=== PATIENT | female | born 1945 | race Caucasian/White ===

== ENCOUNTER 2017-12-14 17:26 | Inpatient (IN) | payer OTHER ==
[~2017-12-14] VITALS: Ht 152.4 cm; Wt 86.2 kg
--- NOTE | 2017-12-14 17:29 | NUR ---
PT [facility] ALS TO BED 1
--- NOTE | 2017-12-14 17:34 | NUR ---
PATIENT PRESENTS TO ED WITH C/O GENERALIZE WEAKNESS X YESTERDAY;NO FACIAL DROOP;NO BUE AND BLE DRIFT;NO SENSORY LOSS;PERRL;CLEAR SPEECH;PT HAS HX OF CVA W/ LT SIDED DEFICIT HX OF RADICAL MASTECTOMY ON BOTH BREAST;AAO X 2.PDENIES N/V/D; SKIN IS PINK/WARM/DRY;PATIENT POSITIONED FOR COMFORT; HOB ELEVATED; BEDRAILS UP X2; BED DOWN. ER MD MADE AWARE OF PT STATUS.
[2017-12-14 17:43] VITALS: BP 95/54
--- NOTE | 2017-12-14 19:21 | NUR ---
CHARLOTTE GAVE REPORT TO RN JUDITH PULL WORKER. PT VITALS STABLE
[2017-12-14 19:29] LABS: BASOPHILS % (AUTO) 0.1 % (0.0-2.0); EOSINOPHILS % (AUTO) 0.1 % (0.0-4.0); HEMOGLOBIN 11.6 g/dL (12.0-16.0); LYMPHOCYTES # (AUTO) 1.3 K/uL (2.5-16.5); LYMPHOCYTES % (AUTO) 17.1 % (20.5-51.1); MEAN CORPUSCULAR HEMOGLOBIN 22 pg (27-31); MEAN CORPUSCULAR HGB CONC 30 g/dL (33-37); MEAN CORPUSCULAR VOLUME 72.5 fL (80-94); MONOCYTES # (AUTO) 0.6 K/uL (0.8-1.0); MONOCYTES % (AUTO) 8.2 % (1.7-9.3); NEUTROPHILS # (AUTO) 5.8 K/uL (1.8-7.7); NEUTROPHILS % (AUTO) 74.5 % (42.2-75.2); PLATELET COUNT (AUTO) 142 K/uL (140-450); RED BLOOD CELL COUNT(AUTO) 5.35 MIL/uL (4.20-5.40); RED CELL DISTRIBUTION WIDTH 21.9 % (11.6-13.7); WHITE BLOOD COUNT (AUTO) 7.8 K/uL (4.8-10.8)
[2017-12-14 19:33] LABS: HEMATOCRIT 34.8 % (36-48)
--- NOTE | 2017-12-14 19:38 | NUR ---
PT RESTING IN BED. PT HAD A BM. PT WAS CLEANED UP AND TURNED TO THE SIDE. U/A WAS COLLECTED. COMFEORT MEASURES OFFERED PT TOLERATED WELL.
[2017-12-14 19:42] LABS: PROTHROMBIN TIME 18.8 secs (10.8-13.4)
[2017-12-14 19:57] LABS: ASPARTATE AMINOTRANSFERASE 58 U/L (15-37); CARBON DIOXIDE 22.3 mmol/L (21-32); CHLORIDE 104 mmol/L (98-107); CREATININE 2.9 mg/dL (0.6-1.3); GLUCOSE 124 mg/dL (74-106); SODIUM SERUM 136 mmol/L (136-145); TOTAL BILIRUBIN 1.5 mg/dL (0.0-1.0)
[2017-12-14 20:07] LABS: POTASSIUM 6.3 mmol/L (3.5-5.1); UREA NITROGEN, BLOOD 87 mg/dL (7-18)
--- NOTE | 2017-12-14 20:09 | NUR ---
RECIEVED CALL FROM LAB CRITICAL LAB VALUES LACTIC ACID-5.6, K-6.3, BUN-8.7. NOTIFIED.
[2017-12-14 20:15] LABS: APPEARANCE,URINE SL CLOUDY (CLEAR); BILIRUBIN,URINE NEGATIVE (NEGATIVE); BLOOD, URINE 2+ (NEGATIVE); COLOR,URINE YELLOW (YELLOW); LEUKOCYTE ESTERASE ,URINE 1+ (NEGATIVE); NITRITE, URINE NEGATIVE (NEGATIVE); PH,URINE 5.5 (5.0-9.0); UGLUCOSE NEGATIVE (NEGATIVE)
[2017-12-14] MEDS ORDERED: DEXTROSE 50% 50 ML SYR IVP ONE (20:15)
[2017-12-14] MEDS ORDERED: INSULIN REGULAR, HUMAN 100 UNIT/ML VIAL SUBQ ONE (20:15)
[2017-12-14] MEDS ORDERED: NACL 0.9% 2,500 ML IV ONE (20:25)
[2017-12-14 21:01] LABS: RBC,URINE 11-20 (MOD) /HPF (0-5); WBC,URINE TOO MANY TO COUNT /HPF (0-5)
[2017-12-14] MEDS ORDERED: LEVOFLOXACIN 500 MG/D5W PREMIX 100 ML IV ONE (21:20)
[2017-12-14] MEDS: NACL 0.9% 1,000 ML IV SCH (21:59)
[2017-12-14] MEDS ORDERED: ONDANSETRON 4 MG/2 ML VIAL IVP PRN (22:00)
[2017-12-14] MEDS ORDERED: HYDROcodone/APAP 5/325 MG 1 TAB TAB PO PRN (22:00)
[2017-12-14] MEDS ORDERED: ACETAMINOPHEN 325 MG TAB PO PRN (22:00)
--- NOTE | 2017-12-14 22:05 | NUR ---
PT RESTING IN BED, VITALS STABLE. FAMILY AT BEDSIDE
[2017-12-14] MEDS ORDERED: SODIUM POLYSTYRENE 15 GM/60 ML UDBTL PO ONE (22:10)
[2017-12-14 22:52] LABS: ANION GAP 17.3 (8-16); CARBON DIOXIDE 22.1 mmol/L (21-32); CHLORIDE 104 mmol/L (98-107); GLUCOSE 227 mg/dL (74-106); SODIUM SERUM 137 mmol/L (136-145)
[2017-12-14 22:56] LABS: POTASSIUM 6.4 mmol/L (3.5-5.1); UREA NITROGEN, BLOOD 85 mg/dL (7-18)
--- NOTE | 2017-12-14 23:10 | NUR ---
Patient will be admitted to care of DR. DUNHAM . Admited to TELEMETRY . Will go to room 121A . Belongings list completed. Report to FUENTES RASMUSSEN. VITALS STABLE UPON TRANSFER TO FLOOR. PT TOLERATED WELL.
--- NOTE | 2017-12-14 23:10 | NUR ---
Pt report given to FUENTES RASMUSSEN. Transfer of care at this time. VITALS STABLE
--- NOTE | 2017-12-14 23:12 | NUR ---
Nataly cloud in ED - 12/15/17 at 0042 by [email or web address] Pt report given to MAXX RASMUSSEN. Transfer of care at this time. VITALS STABLE
--- NOTE | 2017-12-14 23:15 | NUR ---
RECEIVED FROM ER PER CHETNA AWAKE , ALERT AND ABLE TO VERBALIZE SIMPLE NEEDS. PT. ACCOMPANIED BY DAUGHTER WHO TAKES CARE OF HER AT HOME. PT. DX. OF LACTIC ACIDOSIS AND RENAL FAILURE. ON TELEMETRY MONITORING. CARE PLANS FOR THE NIGHT DISCUSSED WITH PT. AND DAUGHTER( ESTELA), CALL LIGHT WITH IN REACH AND HOW TO USE IT, RAPID RESPONSE EXPLAINED. NO EDEMA NOTED. PT. WITH SKIN INTACT BUT WITH BRUISING TO BACK AND SHOULDER RIGHT SIDE AND LEFT KNEE. PT. APPARENTLY TAKING PLAVIX P.O. 75 MG. AT HOME. AFEBRILE. ROOM AIR 02 SAT 100 %.
[2017-12-14] MEDS ORDERED: SODIUM POLYSTYRENE 15 GM/60 ML UDBTL PO SCH (23:30)
[2017-12-15 00:02] VITALS: BP 80/57
[2017-12-15] MEDS ORDERED: cefTRIAXone 1,000 MG VIAL ONE (00:26)
[2017-12-15] MEDS: NACL 0.9% 1,000 ML IV SCH ×2 (00:29→17:59)
--- NOTE | 2017-12-15 01:34 | NUR ---
PT. STILL AWAKE AT THIS TIME. DAUGHTER LEFT FOR HOME. PT. ABLE TO SWALLOW ALL KAYEXALATE ADMINISTERED. NO VOMITING. EXPLAINED WHY MD ORDERED IT. "OK" KEPT COMFORTABLE AND WARM. CALL LIGHT WITH IN REACH. IVF SITE INTACT AND NO INFILTRATION NOTED. WITH NS AT 100 ML/H AND WITH PIGGY BACK OF ROCEPHIN IVP 1 GM. ORDERED NOW.
--- NOTE | 2017-12-15 02:33 | NUR ---
PT. AT THIS TIME WITH BM. CLEANED BY CNAS. KEPT WARM, DRY AND CLEAN. ABLE TO USE CALL LIGHT FOR HELP. TELEMETRY MONITORING. NEEDS ANTICIPATED AND WILL BE MET. TURNED TO SIDES WITH PILLOW SUPPORT. ENCOURAGED TO STAY ON TURNED SIDE.
[2017-12-15 04:00] VITALS: BP 99/56
--- NOTE | 2017-12-15 04:00 | NUR ---
PT. HAD BM 3 X SINCE ADMINISTERING KAYEXALATE P.O. ABLE TO VERBALIZE NEEDS WELL. NO SOB. DENIES ANY PAIN. TURNED TO SIDES WITH PILLOW SUPPORT. PT. AT TIMES TURNS TO OTHER SIDE BY HERSELF. PILLOW SUPPORT TO PRESSURE AREAS.
[2017-12-15 06:22] LABS: BASOPHILS % (AUTO) 0.3 % (0.0-2.0); EOSINOPHILS % (AUTO) 0.3 % (0.0-4.0); HEMATOCRIT 37.2 % (36-48); LYMPHOCYTES # (AUTO) 0.9 K/uL (2.5-16.5); LYMPHOCYTES % (AUTO) 13.9 % (20.5-51.1); MEAN CORPUSCULAR HEMOGLOBIN 22 pg (27-31); MEAN CORPUSCULAR HGB CONC 30 g/dL (33-37); MEAN CORPUSCULAR VOLUME 72.8 fL (80-94); MONOCYTES # (AUTO) 0.5 K/uL (0.8-1.0); MONOCYTES % (AUTO) 8.4 % (1.7-9.3); NEUTROPHILS # (AUTO) 4.8 K/uL (1.8-7.7); NEUTROPHILS % (AUTO) 77.1 % (42.2-75.2); PLATELET COUNT (AUTO) 125 K/uL (140-450); RED BLOOD CELL COUNT(AUTO) 5.11 MIL/uL (4.20-5.40); RED CELL DISTRIBUTION WIDTH 21.6 % (11.6-13.7); WHITE BLOOD COUNT (AUTO) 6.2 K/uL (4.8-10.8)
--- NOTE | 2017-12-15 06:33 | NUR ---
PT. AWAKE AT THIS TIME . HEPARIN 5000 UNITS ADMINISTERED SQ TO ABDOMEN. NO COMPLAINTS DONE. STATED THAT SHE FEELS BETTER AFTER ALL THE BM SHE HAD FROM KAYEXALATE ADMINISTRATION. FOR NEPHROLOGY CONSULT RT HYPERKALEMIC. .
[2017-12-15 07:06] LABS: ALBUMIN 2.8 g/dL (3.4-5.0); ANION GAP 15.2 (8-16); ASPARTATE AMINOTRANSFERASE 65 U/L (15-37); CARBON DIOXIDE 23.1 mmol/L (21-32); CHLORIDE 108 mmol/L (98-107); GLUCOSE 78 mg/dL (74-106); POTASSIUM 5.3 mmol/L (3.5-5.1); SODIUM SERUM 141 mmol/L (136-145); TOTAL BILIRUBIN 1.1 mg/dL (0.0-1.0)
[2017-12-15 07:21] LABS: UREA NITROGEN, BLOOD 87 mg/dL (7-18)
--- NOTE | 2017-12-15 07:24 | NUR ---
RECEIVED REPORT FROM NIGHTSHIFT NURSE AT BEDSIDE. PATIENT IS ASLEEP AT THIS TIME BUT AROUSABLE TO NAME. NO DISTRESS NOTED. NO PAIN NOTED. PATIENT HAS AN IV NOTED ON HER LEFT AC 22 G RUNNING NS AT 100 ML/HR. BRUISES NOTED ON SHOULDER AND KNEE. CALL LIGHT WITHIN REACH OF PATIENT. PATIENT'S ROOM NEAR NURSING STATION. UPDATED BOARD IN PATIENT'S ROOM. BED ALARM ON. WILL CONTINUE TO MONITOR PATIENT.
--- NOTE | 2017-12-15 07:24 | NUR ---
PT. AWAKE AT T HIS TIME. ENDORSED TO THE NEXT RN FOR CONTINUITY OF CARE. ABLE TO VERBALIZE SIMPLE NEEDS WELL IN [place]. TELEMETRY MONITORING. LAC IVF SITE INTACT AND NO INFILTRATION.
--- NOTE | 2017-12-15 07:42 | NUR ---
PAGED DR. ELENA REGARDING CRITICAL LAB VALUES. AWAITING CALL BACK.
[2017-12-15 08:00] VITALS: BP 104/57
--- NOTE | 2017-12-15 08:15 | NUR ---
PAGED DR. ELENA REGARDING CRITICAL LAB VALUES. AWAITING CALL BACK
--- NOTE | 2017-12-15 08:25 | NUR ---
TRIED TO PAGE DR. ELENA REGARDING CRITICAL. NO ANSWER.
--- NOTE | 2017-12-15 08:38 | NUR ---
PATIENT HAS BEEN SCREENED AND CATEGORIZED HIGH NUTRITION RISK. PATIENT WILL BE SEEN WITHIN 1-2 DAYS OF ADMISSION. 12/15/17 12/16/[address]
--- NOTE | 2017-12-15 10:10 | NUR ---
SPOKE WITH YEELNA FROM [facility] FAXED INITIAL REVIEW TO [phone] PHONE [phone]
[2017-12-15] MEDS: ASPIRIN 81 MG TAB.CHEW PO SCH (10:24)
--- NOTE | 2017-12-15 11:13 | NUR ---
PATIENT RESTING AT THIS TIME. NO DISTRESS NOTED. WILL CONTINUE TO MONITOR PATIENT.
--- NOTE | 2017-12-15 11:30 | NUR ---
INSERTED JJ CATHETER INTO PATIENT USING STERILE TECHNIQUE. BACK FLOW OF URINE APPEARS OMERO YELLOW. PATIENT TOLERATED WELL. WILL CONTINUE TO MONITOR PATIENT.
[2017-12-15 12:00] VITALS: BP 91/60
--- NOTE | 2017-12-15 13:56 | NUR ---
PATIENT RESTING AT THIS TIME. NO DISTRESS NOTED. WILL CONTINUE TO MONITOR PATIENT.
[2017-12-15] MEDS ORDERED: CIPROFLOXACIN 250 MG TAB PO SCH ×2 (14:05→14:35)
[2017-12-15] MEDS ORDERED: DEXTROSE 50% 50 ML SYR IVP PRN (14:15)
[2017-12-15] MEDS ORDERED: INSULIN LISPRO SLIDING SCALE 100 UNITS/ML VIAL SUBQ PRN (14:15)
[2017-12-15] MEDS ORDERED: FLUCONAZOLE 100 MG TAB PO SCH (14:38)
[2017-12-15 16:00] VITALS: BP 104/64
--- NOTE | 2017-12-15 16:00 | NUR ---
FAMILY MEMBER AT BEDSIDE. NO DUSTRESS NOTED WILL CONTINUE TO MONITOR PATIENT.
[2017-12-15] MEDS: NYSTATIN 500 MU/5 ML UDC PO SCH ×2 (16:01→20:03)
--- NOTE | 2017-12-15 16:26 | NUR ---
12/15/17 RD INITIAL ASSESSMENT COMPLETED PLEASE REFER TO NUTRITION ASSESSMENT UNDER CARE ACTIVITY FOR ESTIMATED NUTRITIONAL NEEDS. 1. RECOMMEND CCHO 60 GM DIET TOLERATED 2. RECOMMEND NEPRO CARBSTEADY TID 3. RD TO FOLLOW-UP 2-3 DAYS, HIGH RISK MICHEAL MORRISSEY, RD
[2017-12-15] MEDS: BLOOD GLUCOSE MONITORING 1 DEV DEV FS SCH ×2 (16:48→19:57)
--- NOTE | 2017-12-15 17:25 | NUR ---
PATIENT IS ASLEEP AT THIS TIME. NO DISTRESS NOTED. WILL CONTINUE TO MONITOR PATIENT.
--- NOTE | 2017-12-15 19:25 | NUR ---
GAVE REPORT TO NIGHTSHIFT NURSE AT BEDSIDE. PATIENT IN STABLE CONDITION.
--- NOTE | 2017-12-15 19:26 | NUR ---
REPORT RECEIVED FROM AM NURSE AT BEDSIDE. PT IN STABLE CONDITION. AAOX4. INTRODUCED SELF AND BOARD UPDATED. PT HAS JJ IN PLACE DRAINING PROPERLY. IV SITE PATENT AND INTACT WITH NO OPEN WOUNDS. SKIN WARM, DRY, AND INTACT BUT HAS SOME BRUISING ON THE SHOULDER AND LOWER BACK. PICTURES IN THE CHART TAKEN BY CASA RASMUSSEN. BED LOCKED IN LOW POSITION. CALL CLARK WITHIN REACH.
--- NOTE | 2017-12-15 19:45 | NUR ---
TOOK PICTURES OF PATIENT'S BRUISES. FILED IT IN PATIENT'S CHART
[2017-12-15 20:00] VITALS: BP 92/51
--- NOTE | 2017-12-15 20:00 | NUR ---
CIPRO AND NYSTATIN SWISH AND SWALLOW GIVEN. PT TOLERATED WELL. BS 127. NO INSULIN COVERAGE NEEDED.
[2017-12-15] MEDS: CIPROFLOXACIN 250 MG TAB PO SCH (20:03)
--- NOTE | 2017-12-15 22:30 | NUR ---
PULMONARY GROUP CALLED TO PAGE THE X RAY ELECTRONICS WIREMAN MD. MD NEVER CALLED BACK.
--- NOTE | 2017-12-15 22:50 | NUR ---
PT REPOSITIONED IN BED. NO S/S OF DISTRESS. WILL CONTINUE TO MONITOR.
[2017-12-16] VITALS: BP 103/64
--- NOTE | 2017-12-16 00:15 | NUR ---
PT IV PORT CAME LOOSE AND WAS LEAKING. CHECKED IV AND REINSERTED THE LINE. WILL MONITOR AGAIN FOR LEAK.
[2017-12-16] MEDS: NACL 0.9% 1,000 ML IV SCH ×2 (00:43→15:22)
--- NOTE | 2017-12-16 02:00 | NUR ---
IV SITE ATTEMPTED X 3 WITH NO SUCCESS, CHARGE NURSE LIBERTY, TRIED TO OBTAIN SITE BUT WAS UNSUCCESSFUL, ER DEPARTMENT CALLED TO HELP OBTAIN IV SITE.
--- NOTE | 2017-12-16 03:00 | NUR ---
PULMONARY GROUP NOTIFIED OF PT RUN OF VTACH. DR SAAB IS MARKET RESEARCH SENIOR PROJECT MANAGER. NEW ORDER OF CMP, PHOS, AND MAG. ORDER NOT PUT IN DUE TO DR. GRAHAM HAD THE ORDER ALREADY IN.
[2017-12-16 04:00] VITALS: BP 104/61
--- NOTE | 2017-12-16 04:30 | NUR ---
PT CHANGED AND REPOSITIONED IN BED. PT AWAKE AND ALERT. NO S/S OF DISTRESS.
[2017-12-16] MEDS: BLOOD GLUCOSE MONITORING 1 DEV DEV FS SCH ×4 (05:34→21:00)
--- NOTE | 2017-12-16 05:34 | NUR ---
BS 115. NO INSULIN COVERAGE NEEDED.
--- NOTE | 2017-12-16 06:03 | NUR ---
HEPARIN GIVEN. PT TOLERATED WELL.
[2017-12-16 06:52] LABS: HEMATOCRIT 34.6 % (36-48); HEMOGLOBIN 10.4 g/dL (12.0-16.0); MEAN CORPUSCULAR HEMOGLOBIN 22 pg (27-31); MEAN CORPUSCULAR HGB CONC 30 g/dL (33-37); MEAN CORPUSCULAR VOLUME 71.7 fL (80-94); RED BLOOD CELL COUNT(AUTO) 4.82 MIL/uL (4.20-5.40); RED CELL DISTRIBUTION WIDTH 22.3 % (11.6-13.7); WHITE BLOOD COUNT (AUTO) 5.3 K/uL (4.8-10.8)
--- NOTE | 2017-12-16 07:00 | NUR ---
RECEIVED REPORT FROM NIGHTSHIFT NURSE. PATIENT HAS AN IV NOTED ON HER LEFT AC RUNNING NORMAL SALINE AT 100 ML/HR. PATIENT IS ALERT AND ORIENTED X2. NO DISTRESS NOTED AT THIS TIME. PATIENT DOES NOT COMPLAIN OF PAIN. PATIENT HAS JJ CATHETER IN PLACE. UPDATED BOARD IN PATIENT'S ROOM. LOWERED BED TO LOWEST SETTING. CALL LIGHT WITHIN REACH OF PATIENT. WILL CONTINUE TO MONITOR PATIENT.
--- NOTE | 2017-12-16 07:00 | NUR ---
REPORT GIVEN TO AM NURSE AT BEDSIDE. PT IN STABLE CONDITION.
[2017-12-16 07:36] LABS: ALBUMIN 2.5 g/dL (3.4-5.0); ANION GAP 10.6 (8-16); ASPARTATE AMINOTRANSFERASE 58 U/L (15-37); CARBON DIOXIDE 23.8 mmol/L (21-32); CHLORIDE 109 mmol/L (98-107); CREATININE 2.3 mg/dL (0.6-1.3); GLUCOSE 113 mg/dL (74-106); MAGNESIUM 2.2 mg/dL (1.8-2.4); PHOSPHORUS 4.2 mg/dL (2.5-4.9); POTASSIUM 3.4 mmol/L (3.5-5.1); SODIUM SERUM 140 mmol/L (136-145); TOTAL BILIRUBIN 0.8 mg/dL (0.0-1.0)
[2017-12-16 07:42] LABS: UREA NITROGEN, BLOOD 85 mg/dL (7-18)
[2017-12-16 07:51] LABS: PLATELET COUNT (AUTO) 108 K/uL (140-450)
[2017-12-16 07:52] LABS: LYMPHOCYTES % (MANUAL) 14 % (20-46)
[2017-12-16 07:53] LABS: MONOCYTES % (MANUAL) 7 % (5-12)
[2017-12-16 08:00] VITALS: BP 116/62
[2017-12-16] MEDS: CLOPIDOGREL 75 MG TAB PO SCH (09:00)
[2017-12-16] MEDS: FLUCONAZOLE 100 MG TAB PO SCH (09:01)
[2017-12-16] MEDS: CIPROFLOXACIN 250 MG TAB PO SCH (09:01)
[2017-12-16] MEDS: NYSTATIN 500 MU/5 ML UDC PO SCH ×4 (09:01→21:58)
[2017-12-16] MEDS: ASPIRIN 81 MG TAB.CHEW PO SCH (09:02)
--- NOTE | 2017-12-16 09:29 | NUR ---
PATIENT ABLE TO TAKE MEDICATIONS. PATIENT TOLERATED WELL.
[2017-12-16] MEDS ORDERED: POTASSIUM CHLORIDE 10 MEQ TABER PO SCH (10:00)
[2017-12-16] MEDS ORDERED: FUROSEMIDE 20 MG/2 ML VIAL IVP SCH (10:00)
[2017-12-16 12:00] VITALS: BP 104/73
--- NOTE | 2017-12-16 12:27 | NUR ---
PAGED DR. CHOPRA REGARDING PATIENT'S INFECTION. AWAITING CALL BACK
--- NOTE | 2017-12-16 12:42 | NUR ---
PAGED DR. LARIOS REGARDING PATIENT'S INFECTION. STILL NO ANSWER FROM LAST PAGE.
--- NOTE | 2017-12-16 13:39 | NUR ---
FAXED CONCURRENT REVIEW TO [facility] [phone] PHONE YELENA [phone]
--- NOTE | 2017-12-16 15:12 | NUR ---
PAGED DR. LARIOS FOR INFECTION. AWAITING CALL BACK.
[2017-12-16] MEDS: CHLORHEXADINE GLUC 2% CLOTH TP SCH (15:15)
[2017-12-16 16:00] VITALS: BP 112/65
--- NOTE | 2017-12-16 16:14 | NUR ---
Service Greeter Note: I faxed MD's order for snf placement to immigration case worker Dulce Maria at [facility], fax number , phone number , there are currently no physical therapy notes in [facility], therefore I was not able to fax physical therapy notes to Dulce Maria. I called Dulce Maria to inform her of MD's request for snf placement, no answer, left message.
--- NOTE | 2017-12-16 16:24 | NUR ---
Fiberglass Technician Note: Per senior case manager Dulce Maria at [facility], fax number , phone number , she will authorize snf placement for [facility] , she stated patient was recently at [facility]. She stated I can fax inquiry to [facility], I faxed inquiry to [facility]. Addendum: 12/16/17 at 1634 by Brandi Chavarria SS Fiberglass Technician Note: Per Polo from [facility] , they will review inquiry today and if they can clinically accepted patient he will contact PHILLIP العراقي at [facility] and obtain snf authorization, he is aware patient will not be discharge today. Per senior case manager Lesa, patient will not be discharge today. I will follow up with [facility] and/or [facility] tomorrow 12/17/17.
--- NOTE | 2017-12-16 17:00 | NUR ---
Associate Creative Director Notes: Dulce Maria From [facility] called providing [place] transportation Authorization # [id number] and [facility] ([facility]) Authorization # [id number].
--- NOTE | 2017-12-16 17:20 | NUR ---
PATIENT ASLEEP AT THIS TIME. NO DISTRESS NOTED. WILL CONTINUE TO MONITOR PATIENT.
--- NOTE | 2017-12-16 17:25 | NUR ---
PATIENT RESTING AT THIS TIME. NO DISTRESS NOTED. WILL CONTINUE TO MONITOR PATIENT.
[2017-12-16] MEDS: MUPIROCIN 2% OINT 22 GM TUBE TP SCH (17:48)
--- NOTE | 2017-12-16 19:28 | NUR ---
GAVE REPORT TO NIGHTSHIFT NURSE AT BEDSIDE. PATIENT IN STABLE CONDITION.
--- NOTE | 2017-12-16 19:28 | NUR ---
RECEIVED REPORT FROM CASA RASMUSSEN DAYSHIFT NURSE AT BEDSIDE FOR CONTINUITY OF CARE, PT IN STABLE CONDITION.
[2017-12-16 20:00] VITALS: BP 101/64
--- NOTE | 2017-12-16 20:00 | NUR ---
PT IN BED WITH ALL FALLS, AND SEIZURE PRECAUTIONS INTACT. PT NOTED WITH EDEMA PITTING +1 IN A EXTREMITIES. L AC IV SITE INFILTRATED. PT HAS F/C 16 [place] IN TACT AND DRAINING CLOUDY STRAW LIKE URINE. V/S FOLLOWS T 98.8 P 101 R 20 B/P 101/64. PT HAD BM X 1 LUNGS CLEAR AND B/S POSITIVE IN ALL 4 QUADS. F/S WAS 147 NO COVERAGE NEEDED.
[2017-12-17] VITALS: BP 99/61
--- NOTE | 2017-12-17 02:30 | NUR ---
MAN RASMUSSEN, CHARGE IN ER DEPARTMENT, WAS ABLE TO OBTAIN IV SITE ON RIGHT INDEX FINGER. IV RUNNING N/S AT 80MLS/HR. ALL REQUESTED NEEDS ATTENDED BY STAFF.
[2017-12-17] MEDS: NACL 0.9% 1,000 ML IV SCH ×2 (03:33→16:03)
[2017-12-17 04:00] VITALS: BP 96/53
--- NOTE | 2017-12-17 04:00 | NUR ---
PT IN BED NO S/S OF PAIN OR DISTRESS, V/S FOLLOWS T 97.9 P 95 R 18 B/P 96/53 02 93 WITH R/A.
[2017-12-17] MEDS: BLOOD GLUCOSE MONITORING 1 DEV DEV FS SCH ×4 (06:49→20:54)
--- NOTE | 2017-12-17 07:15 | NUR ---
REPORT GIVEN AT BEDSIDE TO VIRGINIA RASMUSSEN DAYSHIFT NURSE FOR CONTINUITY OF CARE, PT IN STABLE CONDITION.
--- NOTE | 2017-12-17 08:13 | NUR ---
RECEIVED REPORT FROM RODDING ANODE WORKER BENITA RN FOR CONTINUITY OF CARE. PATIENT AWAKE A/OX2 WITH A PERIOD OF CONFUSION. NO S/S OF RESP DISTRESS NOTED ABLE TO MAKE NEEDS KNOWN DENIES ANY PAIN. IV SITE LT INDEX FINGER GAUGE 22 INTACT AND PATENT . IVF INFUSING WELL. RT ARM SWOLLEN ELEVATED WITH PILLOW. BRUISES NOTED ON RT SHOULDER AND BACK AND LEFT KNEE. SAFETY ENFORCED. WILL REPOSITIONED Q 2 HRS. PLAN OF CARE DISCUSSED WITH THE PATIENT VITALS STABLE WILL CONTINUE TO MONITOR.
[2017-12-17 08:23] VITALS: BP 109/65
[2017-12-17 09:16] LABS: CARBON DIOXIDE 23.1 mmol/L (21-32); CHLORIDE 107 mmol/L (98-107); CREATININE 2.2 mg/dL (0.6-1.3); GLUCOSE 120 mg/dL (74-106); POTASSIUM 4.1 mmol/L (3.5-5.1); SODIUM SERUM 137 mmol/L (136-145)
[2017-12-17 09:17] LABS: HEMATOCRIT 37.7 % (36-48); HEMOGLOBIN 11.1 g/dL (12.0-16.0); MEAN CORPUSCULAR HEMOGLOBIN 22 pg (27-31); MEAN CORPUSCULAR HGB CONC 29 g/dL (33-37); MEAN CORPUSCULAR VOLUME 73.2 fL (80-94); PLATELET COUNT (AUTO) 122 K/uL (140-450); RED BLOOD CELL COUNT(AUTO) 5.15 MIL/uL (4.20-5.40); RED CELL DISTRIBUTION WIDTH 22.1 % (11.6-13.7); WHITE BLOOD COUNT (AUTO) 6.6 K/uL (4.8-10.8)
[2017-12-17 09:31] LABS: UREA NITROGEN, BLOOD 87 mg/dL (7-18)
--- NOTE | 2017-12-17 09:40 | NUR ---
DUE MEDS GIVEN TOLERATED WELL . ASSIST PATIENT WITH BREAKFAST , MORNING CARE GIVEN WILL OBSERVE PATIENT.
[2017-12-17] MEDS: ASPIRIN 81 MG TAB.CHEW PO SCH (09:58)
[2017-12-17] MEDS: CLOPIDOGREL 75 MG TAB PO SCH (09:58)
[2017-12-17] MEDS: FLUCONAZOLE 100 MG TAB PO SCH (09:59)
[2017-12-17] MEDS: NYSTATIN 500 MU/5 ML UDC PO SCH ×4 (09:59→20:49)
[2017-12-17 10:28] LABS: CORRECTED WHITE BLOOD COUNT 6.3 K/uL (4.5-11.0); EOSINOPHILS % (MANUAL) 2 % (0-4); LYMPHOCYTES % (MANUAL) 30 % (20-46); MONOCYTES % (MANUAL) 9 % (5-12)
--- NOTE | 2017-12-17 10:40 | NUR ---
DR GOSS VISITED PATIENT SPOKE WITH FAMILY MEMBER PER FAMILY REQUEST WANTED ENVIRONMENTAL ATTORNEY TO SEE PATIENT BEFORE DISCHARGE DR GOSS CONSULTING DR SURINDER LOCKE WAITING FOR DR SURINDER Alvarez
--- NOTE | 2017-12-17 11:35 | NUR ---
CHECKED BLOOD SUGAR 131 NO COVERAGE NEEDED , VITALS STABLE DR SURINDER SCHULTZ VISITED PATIENT NO NEW ORDER AT THIS TIME
[2017-12-17 11:51] VITALS: BP 99/57
--- NOTE | 2017-12-17 13:00 | NUR ---
ENDORSE THE CARE TO KARISSA RASMUSSEN
--- NOTE | 2017-12-17 13:00 | NUR ---
RECEIVED PATIENT REPORT FROM VIRGINIA RASMUSSEN AT BEDSIDE, PATIENT IS AAOX1 AND SHOWS NO S/S OF ACUTE DISTRESS ON ROOM AIR. PATIENT DENIES PAIN. IVF'S INFUSING WELL ON THE RIGHT INDEX FINGER. SKIN IS INTACT, NOTED DISCOLORATION WITH DIFFERENT HEALING STAGES ON THE RIGHT ARM AND BACK AND KNEE FROM PREVIOUS FALL AT HOME. PATIENT IS ON FALL RISK PRECAUTION, BED IN LOW POSITION, BRAKES ACTIVATED, WITH BED ALARM ON. CALL LIGHT IS WITHIN REACH. PATIENT IS AWARE OF POC FOR TODAY AND VERBALIZED UNDERSTANDING HOWEVER, NEED REINFORCEMENT OF CARE.
--- NOTE | 2017-12-17 13:09 | NUR ---
12/17/17 RD FOLLOW UP COMPLETED PLEASE REFER TO NUTRITION PROGRESS NOTE UNDER CARE ACTIVITY FOR ESTIMATED NUTRITION NEEDS. RD RECOMMENDATIONS: 1. RECOMMEND CONTINUE CCHO 60 GM DIET TOLERATED 2. RECOMMEND CONTINUE SUPPLEMENT DIET WITH NEPRO CARBSTEADY TID 3. RD TO FOLLOW-UP 2-3 DAYS, HIGH RISK MORRIS DARBY MBA, RD
[2017-12-17] MEDS: CHLORHEXADINE GLUC 2% CLOTH TP SCH (14:49)
[2017-12-17] MEDS: MUPIROCIN 2% OINT 22 GM TUBE TP SCH (14:49)
--- NOTE | 2017-12-17 15:00 | NUR ---
PATIENT HAD A LARGE BM. PATIENT WAS GIVEN PERINEAL CARE, NOTED SACRAL REDNESS FROM IAD. PATIENT JJ HAS OMERO URINE, 550 CC WAS VOIDED. PATIENT WAS REPOSITIONED AND IS RESTING COMFORTABLY IN BED. BED IN LOW POSITION WITH HOB ELEVATED AND BED ALARM ACTIVATED.
--- NOTE | 2017-12-17 15:31 | NUR ---
Leadership Program Associate Note: Per Polo from [facility] , patient has been accepted and may go to room 210B
[2017-12-17 16:00] VITALS: BP 88/57
--- NOTE | 2017-12-17 16:54 | NUR ---
SPOKE WITH DR GOSS REGARDING PATIENT BEING ACCEPTED TO [facility] ROOM [phone] ROOM 210B. PATIENT WAS OKAY TO BE DISCHARGED BY DR GOSS, HE ORDERED TO CONTINUE IV ABX ROCEPHIN 1 GM Q24H X 7 DAYS AND TO KEEP THE JJ CATH IN. WILL PLACE ORDERS.
[2017-12-17] MEDS ORDERED: HYDRAGUARD CREAM TP SCH (17:00)
[2017-12-17] MEDS ORDERED: ROC2I IV (17:12)
[2017-12-17 18:43] VITALS: BP 106/61
--- NOTE | 2017-12-17 19:13 | NUR ---
ADMINISTERED HEPARIN SQ 5000 UNITS ON THE LEFT UPPER ARM, EMAR UNABLE TO PROCESS THROUGH AND SHOWS NOT GIVEN
--- NOTE | 2017-12-17 19:25 | NUR ---
GAVE PATIENT REPORT AT BEDSIDE TO NIGHT NURSE, PATIENT ENDORSED IN STABLE CONDITION.
--- NOTE | 2017-12-17 19:25 | NUR ---
RECEIVED PT FROM DAY SHIFT NURSE KARISSA. PT IN BED AWAKE WITH DIFFICULTY FOLLOWING COMMANDS. IV IN RIGHT INDEX FINGER SL. JJ CATH IN PLACE. PT NOTED TO BE CONFUSED, AALOX1, ON RA, CONTACT FOR MDRO OF URINE. PT TO BE TRANSFERRED TO [facility] AT 0830 PM FOR CONTINUED IV ANTIBIOTIC THERAPY. PT UNABLE TO SIGN PAPERWORK, ALL D/C PAPER SIGNED AND AT BEDSIDE. CALL LIGHT WITHIN REACH, WILL TAKE V/S AND GIVE SCHEDULED MEDICATIONS.
--- NOTE | 2017-12-17 21:09 | NUR ---
PT LEFT VIA GURNEY, WRIST BANDS REMOVED, PT STABLE.
--- NOTE | 2017-12-23 07:27 | NUR ---
FAXED DISCHARGE SUM[facility];RY TO [facility] [place] [place] [phone]
== END 2017-12-17 21:09 | DRG 871 ==
LOC: MED 17:26 → MTU 21:59
PROVIDERS: ADMIT Internal Medicine Pulmonary Disease; ATTEND Internal Medicine Pulmonary Disease
DX: A41.9 Sepsis, unspecified organism (principal); E43 Unspecified severe protein-calorie malnutrition; N39.0 Urinary tract infection, site not specified; N17.9 Acute kidney failure, unspecified; I13.0 Hypertensive heart and chronic kidney disease with heart failure and stage 1 through stage 4 chronic kidney disease, or unspecified chronic kidney disease; E87.2 Acidosis; I50.22 Chronic systolic (congestive) heart failure; E87.5 Hyperkalemia; E66.01 Morbid (severe) obesity due to excess calories; E86.0 Dehydration; E83.52 Hypercalcemia; E11.22 Type 2 diabetes mellitus with diabetic chronic kidney disease; F01.50 Vascular dementia, unspecified severity, without behavioral disturbance, psychotic disturbance, mood disturbance, and anxiety; E78.5 Hyperlipidemia, unspecified; T45.1X5A Adverse effect of antineoplastic and immunosuppressive drugs, initial encounter; N18.9 Chronic kidney disease, unspecified; B96.20 Unspecified Escherichia coli [E. coli] as the cause of diseases classified elsewhere; Z85.3 Personal history of malignant neoplasm of breast; Z90.13 Acquired absence of bilateral breasts and nipples; Z86.73 Personal history of transient ischemic attack (TIA), and cerebral infarction without residual deficits; Z91.041 Radiographic dye allergy status; Z88.5 Allergy status to narcotic agent; Z68.37 Body mass index [BMI] 37.0-37.9, adult; Y92.89 Other specified places as the place of occurrence of the external cause
CPT/HCPCS: 36415; 70450; 71045; 80048; 80053; 81001; 82550; 82948; 83605; 83735; 83880; 84100; 84484; 85025; 85610; 85730; 87040; 87081; 87086; 87186; 93005; 96372; 96374; 97140; 97535; 99285; J0696; J1644; J1815; J1940; J1956; J2405; J7030; J7060